=== PATIENT | male | born 1965 | race Caucasian/White ===

== ENCOUNTER 2016-08-30 14:54 | Emergency (ER) | payer OTHER ==
[~2016-08-30] VITALS: Ht 160 cm; Wt 75.0 kg
[~2016-08-30 14:54] MED LIST: GEOD80CA PO; NEUR600T PO; Z.0.NO CURRENT MEDS
[2016-08-30 14:58] VITALS: BP 130/77; PULSE 102; RESP 18; TEMP 97.2; O2SAT 98
--- NOTE | 2016-08-30 15:03 | PD ---
Physical Exam Date Seen by Provider: August 30, 2016 Time Seen by Provider: 15:00 Narrative 51 YOWM C/O FACIAL SWELLING TODAY. H/O OSTEOSARCOMA AND RECONSTRUCTION. FROM THE [facility] wating for bed asignment Data Data Last Documented VS Vital Signs Date Time Temp Pulse Resp B/P Pulse Ox O2 Delivery O2 Flow Rate FiO2 08/30/16 14:58 97.2 102 18 130/77 98 Room Air [facility] Medical Record Reviewed: No Supervised Visit with KEIKO: Ronn Dawkins August 30, 2016 15:03
[2016-08-30 16:28] VITALS: BP 131/77; PULSE 97; RESP 18; O2SAT 95
[2016-08-30] MEDS ORDERED: SODIUM CHLOR 0.9% 1000 ML INJ 1,000 ML IV ONE (16:30)
[2016-08-30] MEDS ORDERED: CLINDAMYCIN INJ 900 MG in SODIUM CHLORIDE 0.9% INJ 100 ML IV ONE (16:30)
--- NOTE | 2016-08-30 16:43 | PD ---
HPI Chief Complaint: Facial Pain or Swelling Time Seen by Provider: 16:09 Travel History International Travel<30 days: No Contact w/Intl Traveler<30days: No Traveled to known affect area: No History of Present Illness HPI 51-year-old male arrives with 1 day of swelling and erythema on the left cheek. It's tender. He was sent here from the [place] clinic. He's had no fever. He denies any recent trauma. He reports 10 years ago he had a cosmetic procedure done and believes it may somehow be related. Pain is worse with palpation. It' s constant. He can eat and drink normally. PFSH Past Medical History Anxiety: Yes Depression: Yes Cancer: No Cardiovascular Problems: No Cerebrovascular Accident: No Diabetes: No Diminished Hearing: No Endocrine: No Genitourinary: No Headaches: Yes Immune Disorder: No Musculoskeletal: No Neurologic: No Reproductive: No Respiratory: No Migraines: No Schizophrenia: Yes Thyroid Disease: No Tetanus Vaccination: Unknown Influenza Vaccination: Yes Past Surgical History Oral Surgery: Yes (TONSILLECTOMY) Tonsillectomy: Yes Social History Alcohol Use: No Tobacco Use: No (quit 1996) Substance Use: No Allergies-Medications (Allergen,Severity, Reaction): Coded Allergies: No Known Allergies (Verified , 04/05/11) Reported Meds & Prescriptions Reported Meds & Active Scripts Active Clindamycin (Clindamycin HCl) 150 Mg Cap 450 Mg PO Q8HR 10 Days Reported Neurontin (Gabapentin) 600 Mg Tab 600 Mg PO BID Geodon (Ziprasidone) 80 Mg Cap 80 Mg PO HS No Current Meds (Miscellaneous Medication) Misc Review of Systems Except as stated in HPI: all other systems reviewed are Neg General / Constitutional: No: Fever Physical Exam Narrative GENERAL: 51-year-old male well-nourished well-developed SKIN: Focused skin assessment warm/dry. HEAD: Atraumatic. Normocephalic. EYES: Pupils equal and round. No scleral icterus. No injection or drainage. ENT: No nasal bleeding or discharge. Mucous membranes pink and moist. Within the left buccal mucosa there is swelling and erythema with tenderness. The parotid gland appears to be spared. The oral mucosa is intact with no sign of a sialolith. Dentition is good and there is no dental carry her dental abscess. Tympanic membranes are pink and dry with clear visualization of bony landmarks. NECK: Trachea midline. No JVD. CARDIOVASCULAR: Regular rate and rhythm. No murmur appreciated. RESPIRATORY: No accessory muscle use. Clear to auscultation. Breath sounds equal bilaterally. GASTROINTESTINAL: Abdomen soft, non-tender, nondistended. Hepatic and splenic margins not palpable. MUSCULOSKELETAL: No obvious deformities. No clubbing. No cyanosis. No edema. NEUROLOGICAL: Awake and alert. No obvious cranial nerve deficits. Motor grossly within normal limits. Normal speech. PSYCHIATRIC: Appropriate mood and affect; insight and judgment normal. Data Data Last Documented VS Vital Signs Date Time Temp Pulse Resp B/P Pulse Ox O2 Delivery O2 Flow Rate FiO2 08/30/16 16:28 97 18 131/77 95 Room Air 08/30/16 14:58 97.2 51-year-old male Orders Clindamycin Inj (Cleocin Inj) (08/30/16 16:30) Sodium Chlor 0.9% 1000 Ml Inj (Ns 1000 M (08/30/16 16:30) Clindamycin Inj (Cleocin Inj) (08/30/16 16:45) [facility] Medical Decision Making Medical Screen Exam Complete: Yes Emergency Medical Condition: Yes Medical Record Reviewed: Yes Differential Diagnosis Abscess, cellulitis, parotitis, neoplastic mass Narrative Course The patient likely has a cellulitis of the left buccal mucosa/left face. An abscess is certainly a possibility. Other etiologies as noted are also considered. The patient is alert and oriented 3. He is competent for independent decision making. He is nonetheless very agitated. While an IV was initiated the patient became extremely angry and shouted at the nurse in a threatening and insulting tone and several staff members and security gaurds gathered about his room immediately. Shouting and insults from the patient ensued. Pt demanded to dictate his care. Every effort was made to avoid a code avila followed by 4 point locked restraints with chemical sedation or possibly the patient eloping. I believe the patient was too volatile to engage in a conversation about leaving AGAINST MEDICAL ADVICE. Suggestions of at home interventions elicited consternation, rebuke and dismissal by the patient. The patient himself stated he was liable to explosive behavior. In order to at least give him antibiotics, the only intervention he would allow which could benefit him, I more or less acquiesced to his every demand. Shortly after he left I received a phone call from a pharmacist stating the patient was enraged because his prescription wasn't ready for him to roller picker. The patient did leave with a paper prescription in hand. The patient continued to shout and threatened staff including the undersigned until his time of discharge. I arranged for a clindamycin prescription with the pharmacist at [facility] by phone. There is a good possibility the patient will recover with Clindamycin alone. To the best of my ability I tried to help the patient in keeping with his own expectations while avoiding humiliation and undue harm by restraining him. He seemed content with the Clindamycin prescription. Please note no less than 60 minutes was spent speaking with the patient, evaluating and reevaluating him, responding to his concerns, speaking with the pharmacist and then dictating his course. Diagnosis Primary Impression: Rash and nonspecific skin eruption Referrals: Plastic Surgeon 2 days Additional Instructions: You have a choice when it comes to health care, and we are glad that you chose [facility]. Hopefully, we have met your expectations on today's visit. You are welcome to return to [facility] at any time, as we are committed to meeting the health care needs of our community. Med/Other Pt SpecificInfo: Prescription(s) given Scripts Clindamycin 150 Mg [id number] Mg PO Q8HR 10 Days Ref 0 Prov:Massimo Chavez MD 08/30/16 Disposition: 01 DISCHARGE HOME Condition: Stable Massimo Chavez MD August 30, 2016 16:43
[2016-08-30] MEDS ORDERED: CLINDAMYCIN PHOS 900 MG/6 ML VIAL IM ONE (16:45)
[2016-08-30] MEDS ORDERED: CLIN1CAP5 PO (16:55)
== END 2016-08-30 17:27 | disposition home or self-care (01) ==
LOC: NEPC 14:54
DX: R21 Rash and other nonspecific skin eruption (principal)
CPT/HCPCS: 96372